=== PATIENT | male | born 1950 | race Caucasian/White ===

== ENCOUNTER 2022-10-01 08:00 | Outpatient (CLI) | payer OTHER ==
[~2022-10-01] VITALS: Ht 182.9 cm; Wt 131.5 kg
[2022-10-11] MEDS ORDERED: CEFAZOLIN SOD 2 GM in D5W 50 ML IV ONE (07:00)
== END 2022-10-01 20:30 | disposition home or self-care (01) ==
LOC: SLB 08:00 → EDSTATUS 10-11 10:15
PROVIDERS: ATTEND Surgery
DX: R22.2 Localized swelling, mass and lump, trunk (principal)
CPT/HCPCS: 87081; J0690; J7060

== ENCOUNTER 2022-10-31 09:23 | Day surgery (SDC) | payer OTHER ==
[~2022-10-31] VITALS: Ht 182.9 cm; Wt 131.5 kg
[~2022-10-31 09:23] MED LIST: CEFAZOLIN SOD 2 GM in D5W 50 ML IV ONE
[2022-10-31] MEDS ORDERED: NS IRRIG SOLN 1000 ML IR ONE (10:00)
[2022-10-31] MEDS ORDERED: LIDOCAINE/EPI MPF 1%1:200000 30 ML VIAL ONE (10:00)
[2022-10-31] MEDS ORDERED: BUPIVACAINE /PF 0.25% 30 ML VIAL INJ ONE ×2 (10:00→12:19)
[2022-10-31] MEDS ORDERED: LR 1,000 ML IV.SOLN IV ONE (10:00)
[2022-10-31] MEDS ORDERED: LIDOCAINE/EPI MPF 1%1:200000 30 ML VIAL INJ ONE (12:19)
[2022-10-31 15:57] VITALS: BP_SYST 131; PULSE 65; RESP 16; TEMP 98.8
== END 2022-10-31 13:34 | disposition home or self-care (01) ==
LOC: SDS 09:23
PROVIDERS: ATTEND Surgery
DX: R22.2 Localized swelling, mass and lump, trunk (principal)
CPT/HCPCS: 11403; 12032; 88305; J3490; J0690; J7060; J7120; 88304

== ENCOUNTER 2023-03-26 10:45 | Day surgery (SDC) | payer OTHER ==
[~2023-03-26] VITALS: Ht 182.9 cm; Wt 117.9 kg
[~2023-03-26 10:45] MED LIST changes: +ACETAMINOPHEN 500 MG TABLET PO ONE; -CEFAZOLIN SOD 2 GM in D5W 50 ML IV ONE; +GABAPENTIN 300 MG CAPSULE PO ONE; +ceFAZolin SODIUM 2 GM in D5W 100 ML IV ONE
[2023-03-26 11:33] LABS: BASOPHILS % (AUTO) 0.4 % (0.0-2.0); EOSINOPHILS # (AUTO) 0.1 K/uL (0.0-0.4); EOSINOPHILS % (AUTO) 1.6 % (0.0-4.0); HEMATOCRIT 53.5 % (36-54); HEMOGLOBIN 17.6 g/dL (14.0-18.0); LYMPHOCYTES # (AUTO) 1.4 K/uL (1.0-5.5); LYMPHOCYTES % (AUTO) 21.7 % (20.5-51.5); MEAN CORPUSCULAR HEMOGLOBIN 31 pg (27-31); MEAN CORPUSCULAR HGB CONC 33 % (32-36); MEAN CORPUSCULAR VOLUME 93 fL (79.0-98.0); MONOCYTES # (AUTO) 0.5 K/uL (0.0-1.0); MONOCYTES % (AUTO) 7.9 % (1.7-9.3); NEUTROPHILS # (AUTO) 4.4 K/uL (1.8-7.7); NEUTROPHILS % (AUTO) 68.4 % (40.0-70.0); PLATELET COUNT (AUTO) 229 K/uL (130-430); RED BLOOD CELL COUNT(AUTO) 5.73 MIL/uL (4.2-6.2); RED CELL DISTRIBUTION WIDTH 13.7 % (9.0-15.0); WHITE BLOOD COUNT (AUTO) 6.4 K/uL (4.8-10.8)
[2023-03-26 11:41] LABS: ANION GAP 7 (5-15); CALCIUM 9.5 mg/dL (8.4-11.0); CARBON DIOXIDE 29 mmol/L (23-29); CHLORIDE 101 mmol/L (98-107); GLUCOSE 115 mg/dL (74-106); POTASSIUM 4.2 mmol/L (3.5-5.1); SODIUM SERUM 137 mmol/L (136-145); UREA NITROGEN, BLOOD 15 mg/dL (8-21)
[2023-03-26 11:46] LABS: ALANINE AMINOTRANSFERASE 34 U/L (12-78); ALBUMIN 4.1 g/dL (3.4-4.8); ASPARTATE AMINOTRANSFERASE 19 U/L (10-37); TOTAL BILIRUBIN 0.6 mg/dL (0.0-1.0); TOTAL PROTEIN, SERUM 7.9 g/dL (6.4-8.3)
[2023-03-26] MEDS ORDERED: MIDAZOLAM HCL 5 MG/5 ML VIAL ONE (12:40)
[2023-03-26] MEDS ORDERED: fentaNYL CITRATE/PF 100 MCG/2 ML AMP ONE (12:40)
[2023-03-26] MEDS ORDERED: ONDANSETRON HCL 4 MG/2 ML VIAL IVP PRN (14:15)
[2023-03-26] MEDS ORDERED: HYDROmorphone 1 MG/ML INJ. CARTRIDGE IVP PRN (14:15)
[2023-03-26] MEDS ORDERED: ACETAMINOPHEN I.V. 1000 MG 100 ML IV ONE (14:15)
[2023-03-26 15:02] VITALS: BP_SYST 158; PULSE 78; RESP 18; TEMP 99; O2SAT 97
== END 2023-03-28 17:45 | disposition home or self-care (01) ==
LOC: SDS 10:45 → SMU 10:46 → SDS 03-28 17:45
PROVIDERS: ATTEND Surgery
DX: R22.2 Localized swelling, mass and lump, trunk (principal); D17.1 Benign lipomatous neoplasm of skin and subcutaneous tissue of trunk; I10 Essential (primary) hypertension; E66.01 Morbid (severe) obesity due to excess calories
CPT/HCPCS: 87081; 21931; 80053; 85025; 36415; 88304; J2250; J3010; J7060